=== PATIENT | male | born 1995 | race Caucasian/White ===

== ENCOUNTER 2016-11-06 11:56 | Emergency (ER) | payer BC ==
[2016-11-06] MEDS: 0.9 % SODIUM CHLORIDE 1,000 ML BAG IV ONE (12:56)
[2016-11-06 13:05] LABS: BASO % 0.1 % (0-6); GRAN % 71.8 % (47-80); HEMATOCRIT 43.4 % (42.0-52.0); HEMOGLOBIN 15.2 gm/dl (14.0-18.0); MEAN CELL VOLUME 84.1 fl (81-97); MEAN CORPUSCULAR HEMOGLOBIN 29.5 pg (27-33); MEAN PLATELET VOLUME 10.1 fl (7.4-10.4); MONO % 9.1 % (0-9); PLATELET COUNT 192 K/uL (130-400); RED BLOOD COUNT 5.16 M/uL (4.40-5.70); RED CELL DISTRIBUTION WIDTH 12.4 % (11.5-14.5); WHITE BLOOD COUNT W/O DIFF 6.8 K/uL (4.2-12.2)
--- NOTE | 2016-11-06 13:10 | Emergency Department Record ---
History of Present Illness - General Chief complaint: Nausea, Vomiting, Diarrhea Stated complaint: DIARRHEA Time Seen by Provider: 11/06/16 12:34 Source: Patient Mode of Arrival: Ambulatory Limitations: No limitations - History of Present Illness Initial comments: pthas had diarrhea for several days which is slowing down but pt feels dehydrated and weak. pt ate chicken nuggets from [employer] prior to getting sick. MD complaint: Diarrhea, Nausea Onset/Timin -: Days(s) Description of Diarrhea: Water Associated Abdominal Pain: No Severity: Mild Consistency: Constant Context: Possible food poisoning Associated Symptoms: Denies other symptoms - Related Data Home Medications Medication Instructions Recorded Confirmed Last Taken No Home Med [NO HOME MEDS] 11/06/16 11/06/16 Unknown Allergies Allergy/AdvReac Type Severity Reaction Status Date / Time No Known Drug Allergies Allergy Verified 09/16/15 17:47 Travel Screening - Travel/Exposure Within Last 30 Days Have you traveled within the last 30 days?: Yes Location Detail:: [place] - Travel/Exposure Within Last Year Have you traveled outside the [place] in the last year?: Yes Location Detail:: [place] - Additonal Travel Details Have you been exposed to anyone with a communicable illness?: No - Travel Symptoms Symptom Screening: Diarrhea Review of Systems Reviewed: No additional complaints except as noted below Constitutional: Reports: As per HPI. Denies: Chills, Fever, Malaise, Night sweats, Weakness, Weight change Eyes: Reports: As per HPI. Denies: Eye discharge, Eye pain, Photophobia, Vision change ENT: Reports: As per HPI. Denies: Congestion, Dental pain, Ear pain, Epistaxis , Hearing loss, Throat pain Respiratory: Reports: As per HPI. Denies: Cough, Dyspnea, Hemoptysis, Stridor, Wheezes Cardiovascular: Reports: As per HPI. Denies: Arrhythmia, Chest pain, Dyspnea on exertion, Edema, Murmurs, Orthopnea, Palpitations, Paroxysmal nocturnal dyspnea, Rheumatic Fever, Syncope Endocrine: Reports: As per HPI. Denies: Fatigue, Heat or cold intolerance, Polydipsia, Polyuria Gastrointestinal: Reports: As per HPI. Denies: Abdominal pain, Constipation, Diarrhea, Hematemesis, Hematochezia, Melena, Nausea, Vomiting Genitourinary: Reports: As per HPI. Denies: Dysuria, Frequency, Hematuria, Incontinence, Retention, Testicular pain, Testicular mass, Urgency Musculoskeletal: Reports: As per HPI. Denies: Arthralgia, Back pain, Gout, Joint swelling, Myalgia, Neck pain Skin: Reports: As per HPI. Denies: Bruising, Change in color, Change in hair/ nails, Lesions, Pruritus, Rash Neurological: Reports: As per HPI. Denies: Abnormal gait, Confusion, Headache, Numbness, Paresthesias, Seizure, Tingling, Tremors, Vertigo, Weakness Psychiatric: Reports: As per HPI. Denies: Anxiety, Auditory hallucinations, Depression, Homicidal thoughts, Suicidal thoughts, Visual hallucinations Hematological/Lymphatic: Reports: As per HPI. Denies: Anemia, Blood Clots, Easy bleeding, Easy bruising, Swollen glands Past Medical History - SOCIAL HISTORY Smoking Status: Never smoker - RESPIRATORY Hx Respiratory Disorders: No - CARDIOVASCULAR Hx Cardio Disorders: No - NEURO Hx Neuro Disorders: No - GI Hx GI Disorders: No - Hx Genitourinary Disorders: No - ENDOCRINE Hx Endocrine Disorders: No - MUSCULOSKELETAL Hx Musculoskeletal Disorders: No - PSYCH Hx Psych Problems: No - HEMATOLOGY/ONCOLOGY Hx Hematology/Oncology Disorders: No Family Medical History Any Significant Family History?: No Hx HTN: Mother Physical Exam - General General Appearance: Alert, Oriented x3, Cooperative, Mild distress - Head Head exam: Normal inspection - Eye Eye exam: Normal appearance, PERRL, EOMI Pupils: Normal accommodation - ENT ENT exam: Normal exam, Mucous membranes dry, Normal external ear exam, Normal orophraynx, TM's normal bilaterally Ear exam: Normal external inspection. negative: External canal tenderness Nasal Exam: Normal inspection. negative: Discharge, Sinus tenderness Mouth exam: Normal external inspection, Tongue normal Teeth exam: Normal inspection. negative: Dental caries Throat exam: Normal inspection. negative: Tonsillar erythema, Tonsillar exudate - Neck Neck exam: Normal inspection, Full ROM. negative: Tenderness - Respiratory Respiratory exam: Normal lung sounds bilaterally. negative: Respiratory distress - Cardiovascular Cardiovascular Exam: Regular rate, Normal rhythm, Normal heart sounds - GI/Abdominal GI/Abdominal exam: Soft, Normal bowel sounds. negative: Tenderness - Rectal Rectal exam: Deferred - exam: Deferred - Extremities Extremities exam: Normal inspection, Full ROM, Normal capillary refill. negative: Tenderness - Back Back exam: Reports: Normal inspection, Full ROM. Denies: Muscle spasm, Rash noted, Tenderness - Neurological Neurological exam: Alert, CN II-XII intact, Normal gait, Oriented X3 - Psychiatric Psychiatric exam: Normal affect, Normal mood - Skin Skin exam: Dry, Intact, Normal color, Warm Course Vital Signs 11/06/16 12:23 Temperature 99.2 F Pulse Rate 96 H Respiratory 16 Rate Blood Pressure 138/96 Pulse Ox 99 Medical Decision Making - Lab Data Result diagrams: 11/06/16 12:59 11/06/16 12:59 Lab Results 11/06/16 Range/Units 12:59 WBC 6.8 (4.2-12.2) K/uL RBC 5.16 (4.40-5.70) M/uL Hgb 15.2 (14.0-18.0) gm/dl Hct 43.4 (42.0-52.0) % MCV 84.1 (81-97) fl MCH 29.5 (27-33) pg MCHC 35.0 (32-36) g/dl RDW 12.4 (11.5-14.5) % Plt Count 192 (130-400) K/uL MPV 10.1 (7.4-10.4) fl Gran % 71.8 (47-80) % Lymphocytes % 18.0 (16-45) % Monocytes % 9.1 H (0-9) % Eosinophils % 1.0 (0-6) % Basophils % 0.1 (0-6) % Disposition Disposition: Discharge Clinical Impression: Dehydration Pancreatitis Qualifiers: Chronicity: acute Pancreatitis type: unspecified pancreatitis type Acute pancreatitis complication: no infection or necrosis Qualified Code(s): K85.90 - Acute pancreatitis without necrosis or infection, unspecified Diarrhea Qualifiers: Diarrhea type: unspecified type Qualified Code(s): R19.7 - Diarrhea, unspecified Disposition: Home, Self-Care Condition: (1) Good Instructions: Pancreatitis (ED), Dehydration (ED), Acute Nausea and Vomiting ( ED) Additional Instructions: follow up with family doctor. return sooner if worse. push fluids Forms: Patient Portal Access Quality - Quality Measures Quality Measures: N/A - Blood Pressure Screening Does Patient Have Any of the Following: No Blood Pressure Classification: Hypertensive Reading Systolic Measurement: 138 Diastolic Measurement: 96 Screening for High Blood Pressure: < Pre-Hypertensive BP, F/U Documented > [ G8950] Pre-Hypertensive Follow-up Interventions: Follow-up with rescreen every year.
[2016-11-06 13:18] LABS: ALB/GLOB RATIO 1.3 (1.1-1.8); ALBUMIN 4.5 gm/dL (3.5-5.0); ALKALINE PHOSPHATASE 62 U/L (38-126); ALT/SGPT 61 U/L (21-72); ANION GAP 9.5 (7-16); AST/SGOT 63 U/L (17-59); BLOOD UREA NITROGEN 11 mg/dL (9-20); CARBON DIOXIDE 29.5 mmol/L (22-30); CREATININE 0.9 mg/dL (0.66-1.25); EST GLOMERULAR FILTRATION RATE > 60 ml/min; GLUCOSE,RANDOM 96 mg/dL (70-110); LIPASE 315 U/L (23-300); TOTAL PROTEIN 8.1 gm/dL (6.3-8.2)
[2016-11-06] MEDS ORDERED: 0.9 % SODIUM CHLORIDE 1,000 ML BAG IV ONE (14:04)
[2016-11-06 14:05] LABS: URINE APPEARANCE CLEAR; URINE BILIRUBIN NEGATIVE (NEGATIVE); URINE BLOOD NEGATIVE (NEGATIVE); URINE COLOR YELLOW; URINE GLUCOSE (UA) NEGATIVE (NEGATIVE); URINE KETONE NEGATIVE (NEGATIVE); URINE LEUKOCYTE ESTERASE NEGATIVE (NEGATIVE); URINE NITRITE NEGATIVE (NEGATIVE); URINE PROTEIN NEGATIVE (NEGATIVE); URINE UROBILINOGEN 0.2 E.U./dL (0.20 - 1.00)
--- NOTE | 2016-11-06 14:46 | Emergency Department Record ---
History of Present Illness - General Chief complaint: Nausea, Vomiting, Diarrhea Stated complaint: DIARRHEA Time Seen by Provider: 11/06/16 12:34 Source: Patient Mode of Arrival: Ambulatory Limitations: No limitations - History of Present Illness MD complaint: Diarrhea, Nausea Onset/Timin -: Days(s) Description of Diarrhea: Water Associated Abdominal Pain: No Severity: Mild Consistency: Constant Context: Possible food poisoning Associated Symptoms: Denies other symptoms - Related Data Home Medications Medication Instructions Recorded Confirmed Last Taken No Home Med [NO HOME MEDS] 11/06/16 11/06/16 Unknown Allergies Allergy/AdvReac Type Severity Reaction Status Date / Time No Known Drug Allergies Allergy Verified 09/16/15 17:47 Travel Screening - Travel/Exposure Within Last 30 Days Have you traveled within the last 30 days?: Yes Location Detail:: [place] - Travel/Exposure Within Last Year Have you traveled outside the [place] in the last year?: Yes Location Detail:: [place] - Additonal Travel Details Have you been exposed to anyone with a communicable illness?: No - Travel Symptoms Symptom Screening: Diarrhea Review of Systems Constitutional: Reports: As per HPI. Denies: Chills, Fever, Malaise, Night sweats, Weakness, Weight change Eyes: Reports: As per HPI. Denies: Eye discharge, Eye pain, Photophobia, Vision change ENT: Reports: As per HPI. Denies: Congestion, Dental pain, Ear pain, Epistaxis , Hearing loss, Throat pain Respiratory: Reports: As per HPI. Denies: Cough, Dyspnea, Hemoptysis, Stridor, Wheezes Cardiovascular: Reports: As per HPI. Denies: Arrhythmia, Chest pain, Dyspnea on exertion, Edema, Murmurs, Orthopnea, Palpitations, Paroxysmal nocturnal dyspnea, Rheumatic Fever, Syncope Endocrine: Reports: As per HPI. Denies: Fatigue, Heat or cold intolerance, Polydipsia, Polyuria Gastrointestinal: Reports: As per HPI. Denies: Abdominal pain, Constipation, Diarrhea, Hematemesis, Hematochezia, Melena, Nausea, Vomiting Genitourinary: Reports: As per HPI. Denies: Dysuria, Frequency, Hematuria, Incontinence, Retention, Testicular pain, Testicular mass, Urgency Musculoskeletal: Reports: As per HPI. Denies: Arthralgia, Back pain, Gout, Joint swelling, Myalgia, Neck pain Skin: Reports: As per HPI. Denies: Bruising, Change in color, Change in hair/ nails, Lesions, Pruritus, Rash Neurological: Reports: As per HPI. Denies: Abnormal gait, Confusion, Headache, Numbness, Paresthesias, Seizure, Tingling, Tremors, Vertigo, Weakness Psychiatric: Reports: As per HPI. Denies: Anxiety, Auditory hallucinations, Depression, Homicidal thoughts, Suicidal thoughts, Visual hallucinations Hematological/Lymphatic: Reports: As per HPI. Denies: Anemia, Blood Clots, Easy bleeding, Easy bruising, Swollen glands Past Medical History - SOCIAL HISTORY Smoking Status: Never smoker - RESPIRATORY Hx Respiratory Disorders: No - CARDIOVASCULAR Hx Cardio Disorders: No - NEURO Hx Neuro Disorders: No - GI Hx GI Disorders: No - Hx Genitourinary Disorders: No - ENDOCRINE Hx Endocrine Disorders: No - MUSCULOSKELETAL Hx Musculoskeletal Disorders: No - PSYCH Hx Psych Problems: No - HEMATOLOGY/ONCOLOGY Hx Hematology/Oncology Disorders: No Family Medical History Any Significant Family History?: No Hx HTN: Mother Physical Exam - General Limitations: No limitations Course Vital Signs 11/06/16 12:23 Temperature 99.2 F Pulse Rate 96 H Respiratory 16 Rate Blood Pressure 138/96 Pulse Ox 99 - Reevaluation(s) Reevaluation #1: 11/06/16 14:45 pt advised to decrease alcohol Medical Decision Making - Lab Data Result diagrams: 11/06/16 12:59 11/06/16 12:59 Lab Results 11/06/16 11/06/16 11/06/16 Range/Units 12:59 12:59 14:00 WBC 6.8 (4.2-12.2) K/uL RBC 5.16 (4.40-5.70) M/uL Hgb 15.2 (14.0-18.0) gm/dl Hct 43.4 (42.0-52.0) % MCV 84.1 (81-97) fl MCH 29.5 (27-33) pg MCHC 35.0 (32-36) g/dl RDW 12.4 (11.5-14.5) % Plt Count 192 (130-400) K/uL MPV 10.1 (7.4-10.4) fl Gran % 71.8 (47-80) % Lymphocytes % 18.0 (16-45) % Monocytes % 9.1 H (0-9) % Eosinophils % 1.0 (0-6) % Basophils % 0.1 (0-6) % Sodium 135 L (136-145) mmol/L Potassium 3.9 (3.5-5.1) mmol/L Chloride 96 L (98-107) mmol/L Carbon Dioxide 29.5 (22-30) mmol/L Anion Gap 9.5 (7-16) BUN 11 (9-20) mg/dL Creatinine 0.9 (0.66-1.25) mg/dL Estimated GFR > 60 ml/min Random Glucose 96 (70-110) mg/dL Calcium 9.4 (8.5-10.1) mg/dL Total Bilirubin 0.70 (0.2-1.3) mg/dL AST 63 H (17-59) U/L ALT 61 (21-72) U/L Alkaline Phosphatase 62 (38-126) U/L Total Protein 8.1 (6.3-8.2) gm/dL Albumin 4.5 (3.5-5.0) gm/dL Globulin 3.6 (1.4-4.8) gm/dL Albumin/Globulin Ratio 1.3 (1.1-1.8) Lipase 315 H (23-300) U/L Urine Color Yellow Urine Appearance Clear Urine pH 6.5 (5.0-8.0) Ur Specific [place] <= 1.005 (1.002-1.030) Urine Protein Negative (NEGATIVE) Urine Glucose (UA) Negative (NEGATIVE) Urine Ketones Negative (NEGATIVE) Urine Blood Negative (NEGATIVE) Urine Nitrite Negative (NEGATIVE) Urine Bilirubin Negative (NEGATIVE) Urine Urobilinogen 0.2 (0.20 - 1.00) E.U./dL Ur Leukocyte Esterase Negative (NEGATIVE) Disposition Clinical Impression: Dehydration Pancreatitis Qualifiers: Chronicity: acute Pancreatitis type: unspecified pancreatitis type Acute pancreatitis complication: no infection or necrosis Qualified Code(s): K85.90 - Acute pancreatitis without necrosis or infection, unspecified Diarrhea Qualifiers: Diarrhea type: unspecified type Qualified Code(s): R19.7 - Diarrhea, unspecified Disposition: Home, Self-Care Condition: (1) Good Instructions: Pancreatitis (ED), Dehydration (ED), Acute Nausea and Vomiting ( ED) Additional Instructions: follow up with family doctor. return sooner if worse. push fluids Forms: Patient Portal Access Quality - Quality Measures Quality Measures: N/A - Blood Pressure Screening Does Patient Have Any of the Following: No Blood Pressure Classification: Hypertensive Reading Systolic Measurement: 138 Diastolic Measurement: 96 Screening for High Blood Pressure: < Pre-Hypertensive BP, F/U Documented > [ G8950] Pre-Hypertensive Follow-up Interventions: Follow-up with rescreen every year.
== END 2016-11-06 14:53 | disposition home or self-care (01) ==
LOC: ER 11:56
DX: K85.90 Acute pancreatitis without necrosis or infection, unspecified (principal); E86.0 Dehydration; R11.2 Nausea with vomiting, unspecified; R19.7 Diarrhea, unspecified
CPT/HCPCS: 80053; 81003; 83690; 85025; 99284; J7030